=== PATIENT | female | born 1960 | race African-American/Black ===

== ENCOUNTER 2025-01-19 13:40 | Emergency (ER) | payer MEDICAID ==
[~2025-01-19] VITALS: Ht 162.6 cm; Wt 50.3 kg
[2025-01-19 14:34] VITALS: BP 139/85; PULSE 94; RESP 18; O2SAT 98
== END 2025-01-19 16:19 | disposition left against medical advice (07) ==
LOC: ER 13:40
DX: R05.9 Cough, unspecified (principal); Z53.21 Procedure and treatment not carried out due to patient leaving prior to being seen by health care provider

== ENCOUNTER 2025-05-11 09:40 | Emergency (ER) | payer MEDICAID ==
[~2025-05-11] VITALS: Ht 162.6 cm; Wt 48.0 kg
[2025-05-11 10:10] VITALS: BP 132/93; PULSE 80; RESP 20; TEMP 98.2; O2SAT 95
[2025-05-11] MEDS ORDERED: [UNRECOGNIZED DRUG - CODE] OT (10:21)
[2025-05-11] MEDS ORDERED: BENZ100C97 PO (10:21)
[2025-05-11] MEDS ORDERED: METH4PAK PO (10:21)
[2025-05-11] MEDS ORDERED: GUA200LQ PO (10:21)
[2025-05-11] MEDS ORDERED: AUG875T PO (10:21)
--- NOTE | 2025-05-11 10:23 | ED.PDOC ---
SOB-HPI HPI Comments 64-year-old female presents with a chief complaint of SOB, headache, left ear pain, and possible COVID infection. Patient mentions that these symptoms started x 2 days ago. Patient reports that her headache is localized to her frontal head, describes as throbbing. Patient mentions that she was exposed to COVID from her daughter in law. Patient relays that she has been self medicating with Tylenol with temp relief of symptoms. Patient does smoke cigarettes and states that she is not ready to quit. Patient has emphysema from smoking. Started x 2 days ago Also with headache, left ear pain COVID-19 exposure: Yes People at home: YES Denies fevers chills night sweats unintentional weight loss Denies persistent chest pain, shortness of breath, leg swelling Denies history of asthma Denies history of pneumonia Denies recent international travel Chief Complaint: Flu like Time Seen by MD: 10:09 Primary Care Provider: LARIOS Reviewed notes: Nurses Notes, Medications, Allergies Information Source: Patient Mode of Arrival: Ambulatory Severity: Moderate Timing: Days Duration: Since onset Context: Contact Exposure PE Risk Factors: None History of: Other (Emphysema) Prehospital treatment: None Associated Signs and Symptoms: Cough Past Medical History PAST MEDICAL HISTORY: Denies Surgical History: Denies all surgeries CONVERTER SKIMMER History: No Pertinent CONVERTER SKIMMER History Social History Smoker: Cigarettes Alcohol: Denies ETOH Use Drugs: Denies Drug Use Lives In: Home Constitutional: denies: chills, diaphoresis, fatigue, fever, malaise, sweats, weakness, others EENTM: denies: blurred vision, double vision, ear bleeding, ear discharge, ear drainage, ear pain, ear ringing, eye pain, eye redness, hearing loss, mouth pain, mouth swelling, nasal discharge, nose bleeding, nose congestion, nose pain, photophobia, tearing, throat pain, throat swelling, voice changes, others Respiratory: reports: shortness of breath; denies: cough, hemoptysis, orthopnea, SOB at rest, SOB with excertion, stridor, wheezing, others Cardiovascular: denies: chest pain, dizzy spells, diaphoresis, Dyspnea on exertion, edema, irregular heart beat, left arm pain, lightheadedness, palpit ations, PND, syncope, others Gastrointestinal: denies: abdomen distended, abdominal pain, blood streaked b owels, constipated, diarrhea, dysphagia, difficulty swallowing, hematemesis, melena, nausea, poor appetite, poor fluid intake, rectal bleeding, rectal pain, vomiting, others Genitourinary: denies: abnormal vagina bleeding, burning, dyspareunia, dysuria, flank pain, frequency, hematuria, incontinence, pain, , vagina discharge, urgency, others Neurological: reports: headache; denies: dizziness, fainting, left sided numbness, left sided weakness, numbness, paresthesia, pre-existing deficit, right sided numbness, right sided weakness, seizure, speech problems, tingling, tremors, weakness, others Musculoskeletal: denies: back pain, gout, joint pain, joint swelling, muscle pain, muscle stiffness, neck pain, others Integumetry: denies: bruises, change in color, change in hair/nails, dryness, laceration, lesions, lumps, rash, wounds, others Allergic/Immunocompromised: denies: Difficulty Healing, Frequent Infections, Hives, Itching, others Hematologic/Lymphatic: denies: anemia, blood clots, easy bleeding, easy bruising, swollen glands, others Endocrine: denies: excessive hunger, excessive sweating, excessive thirst, excessive urination, flushing, intolerance to cold, intolerance to heat, unexplained weight gain, unexplained weight loss, others Psychiatric: denies: anxiety, bipolar disorder, depression, hopeless, panic disorder, schizophrenia, sleepless, suicidal, others All Other Systems: Reviewed and Negative Physical Exam General Appearance: No Apparent Distress, Normal HEENT: Normal ENT Inspection, Pharynx Normal, TMs Normal Neck: Full Range of Motion, Non-Tender, Normal, Normal Inspection Respiratory: Chest Non-Tender, Lungs Clear, No Accessory Muscle Use, No Respiratory Distress, Normal Breath Sounds, Other (No tripod positioning, patient is able to speak in full complete sentences) Cardiovascular: No Edema, No JVD, No Murmur, No Gallop, Normal Peripheral Pulses, Regular Rate/Rhythm Breast Exam: Deferred Gastrointestinal: No Organomegaly, Non Tender, No Pulsatile Mass, Normal Bowel Sounds, Soft Genitalia: Deferred Pelvic: Deferred Rectal: Deferred Extremities: No calf tenderness, Normal capillary refill, Normal inspection, Normal range of motion, Non-tender, No pedal edema Musculoskeletal : Apperance: Normal Neurologic: Alert, paint line supervisor II-XII nml as Tested, No Motor Deficits, Normal Affect, Normal Mood, No Sensory Deficits Cerebellar Function: Normal Reflexes: Normal Skin: Dry, Normal Color, Warm Lymphatic: No Adenopathy Was a procedure done? Was a procedure done?: No Differential Dx Differential Diagnosis: Asthma, Bronchitis, URI X-Ray, Labs, Meds, VS Vital Signs Date Time Temp Pulse Resp B/P (MAP) Pulse Ox O2 Delivery O2 Flow Rate FiO2 05/11/25 10:10 80 20 95 Room Air 05/11/25 10:10 98.2 80 20 132/93 (106) 95 98.2 05/11/25 09:59 98.2 80 20 132/93 (106) 95 98.2 X-Ray, Labs, Meds, VS Comment 64-year-old female presents with a chief complaint of SOB, headache, left ear pain, and possible COVID infection. Patient arrives alert and oriented, ABC's intact, afebrile, vital signs stable, saturating well in room air The patient is overall well-appearing nontoxic on exam. On physical exam, respirations even and unlabored, clear to auscultation bilaterally. Oxygen stable on room air. Did not have any focal lung findings and therefore chest x-ray was not indicated during this exam Low suspicion of strep pharyngitis given physical exam findings and patient's presenting symptoms No signs of meningismus on exam Overall, the patient is well hydrated and nontoxic. Plan for symptomatic control for fever and pain as needed. The patient was able to tolerate p.o. intake in the ED. at this time, patient is safe for discharge home. The exam f indings and plan discussed. We will discharge home with PCP follow up and strict return precautions. Discussed that cough can linger up to 6 weeks after viral URI Supportive care and return precautions discussed Recommended vitamin C, rest, handwashing, and symptomatic care. Expect 2-week course with possibly of cough lingering up to 6 weeks. Nonpharmacological remedies for fluids has been recommended as well Additional MDM Review of External, Non-ED records: External records reviewed. Discussion with independent historian (EMS, family) history obtained from the patient/parents (if applicable) at bedside Chronic conditions affecting care: None Social determinants of health affecting care: None Consideration of admission (observation or admission): I considered escalation of care to admission for this patient, however given the reassuring workup, the patient is safe for outpatient management. Time of 1ST Reevaluation: 10:39 Reevaluation 1ST: Improved Patient Education/Counseling: Diagnosis, Treatment, Prognosis Family Education/Counseling: No Family Present SEPSIS Sepsis Screen Date sepsis recognized/suspect: May 11, 2025 Time Sepsis recognized/suspect: 944 Recent Procedure: No On Antibiotic Therapy: No Respiratory Rate >20: No Heart Rate >90: No Temp<36 C (96.8 F) or >38.3 C: No SBP <90 or MAP <65 mmHG: No New Acute Mental Status Change: No Is the patient on CPAP, BIPAP,: No Orders/Vitals/Labs Vital Signs Date Time Temp Pulse Resp B/P (MAP) Pulse Ox O2 Delivery O2 Flow Rate FiO2 05/11/25 10:10 80 20 95 Room Air 05/11/25 10:10 98.2 80 20 132/93 (106) 95 98.2 05/11/25 09:59 98.2 80 20 132/93 (106) 95 98.2 Departure 1 Departure Time of Disposition: 10:23 Impression: Primary Impression: Bronchitis Additional Impression: Declined smoking cessation Disposition: HOME / SELF CARE / HOMELESS Condition: Stable e-Prescriptions Guaifenesin (Guaifenesin) 100 Mg/5 Ml Syp 100 MG PO Q6HP PRN for 10 Days, #400 SYP 0 Refills Prov: JR JOHNSON DRIVE THRU ORDER TAKER 05/11/25 Methylprednisolone (Medrol Dosepak) 4 Mg Juan 4 MG PO UD for 7 Days, #21 TAB 0 Refills UAD Prov: JR JOHNSON NP 05/11/25 Benzonatate (Benzonatate) 100 Mg Cap 1 CAP PO TID for 10 Days, #30 CAP 0 Refills Prov: JR JOHNSON DRIVE THRU ORDER TAKER 05/11/25 Carbamide Peroxide (Otic) (Gnp Earwax Removal Kit) 6.5 % Josie 6.5 % OT UD for 1 Day, #1 KIT 0 Refills Prov: JR JOHNSON DRIVE THRU ORDER TAKER 05/11/25 Amoxicillin & Pot Clavulanate (AUGMENTIN TABLET) 875 Mg Tb 875 MG PO BID for 5 Days, #10 TAB 0 Refills Prov: JR JOHNSON NP 6/17/25 Discharged With: Self Critical Care Note Critical Care Time?: No Stability Stability form required: No Heart Score Heart Score: Heart Score Response (Comments) Value History N/A 0 EKG N/A 0 Age N/A 0 Risk Factors N/A 0 Troponin N/A 0 Total 0 I personally scribed for JR JOHNSON NP ([email or web address]) on 05/11/25 at 10:22. Electronically submitted by Guillaume Gilliam ([email or web address]). I personally scribed for JR JOHNSON NP ([email or web address]) on 05/11/25 at 10:25. Electronically submitted by Guillaume Gilliam ([email or web address]). JR JOHNSON NP May 11, 2025 10:22
== END 2025-05-11 10:21 | disposition home or self-care (01) ==
LOC: ER 09:40
DX: J40 Bronchitis, not specified as acute or chronic (principal); F17.210 Nicotine dependence, cigarettes, uncomplicated; H92.02 Otalgia, left ear

== ENCOUNTER 2025-08-19 11:52 | Emergency (ER) | payer MEDICAID ==
[~2025-08-19] VITALS: Ht 157.5 cm; Wt 50.0 kg
[~2025-08-19 11:52] MED LIST: AUG875T PO; BENZ100C97 PO; GUA200LQ PO; METH4PAK PO; [UNRECOGNIZED DRUG - CODE] OT
[2025-08-19 12:00] VITALS: PULSE 71; RESP 16; O2SAT 93
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
[2025-08-19 13:10] VITALS: RESP 19; TEMP 98.6; O2SAT 94
--- NOTE | 2025-08-19 13:39 | DVH ---
CLINICAL INDICATION: fall TECHNIQUE: XY L HIP COMPLETE XRAY Comparison: None FINDINGS/IMPRESSION: : There is no evidence of acute fracture or dislocation. Soft tissues are unremarkable. Moderate degenerative changes of bilateral hips.
--- NOTE | 2025-08-19 13:39 | DVH ---
INDICATION: fall TECHNIQUE: 4 views of the lumbar spine were obtained. COMPARISON: None FINDINGS: There are no acute fractures or subluxations. IMPRESSION: No acute fracture or subluxation.
[2025-08-19] MEDS: KETOROLAC TROMETH 30 MG/ML 1ML VIAL IM ONE (13:46)
[2025-08-19] MEDS: HALOPERIDOL LACTATE 5 MG/ML INJ VIAL IM ONE (13:48)
[2025-08-19 18:00] VITALS: BP 113/76; PULSE 73; RESP 14; O2SAT 93
== END 2025-08-19 19:30 | disposition home or self-care (01) ==
LOC: EDBD 11:52 → ER 11:52
DX: S76.012A Strain of muscle, fascia and tendon of left hip, initial encounter (principal); F17.210 Nicotine dependence, cigarettes, uncomplicated; Z79.899 Other long term (current) drug therapy; W19.XXXA Unspecified fall, initial encounter; Y93.89 Activity, other specified; Y92.89 Other specified places as the place of occurrence of the external cause; Y99.8 Other external cause status
CPT/HCPCS: 72100; 73502; 96372; 99285; J1630; J1885

== ENCOUNTER 2025-11-05 04:22 | Emergency (ER) | payer MEDICAID ==
[~2025-11-05] VITALS: Ht 162.6 cm; Wt 49.0 kg
--- NOTE | 2025-11-05 04:36 | ED.PDOC ---
History of Present Illness HPI Comments 65-year-old female who came to ER via EMS for difficulty swallowing. Patient has history of COPD. States for the past 3 days, she has been having difficulty swallowing. Feels like there is something stuck in her throat. Noted to also have shortness of breath/difficulty breathing. Patient states she has di fficulty swallowing but claims she has no problem eating her food. No drooling noted. Chief Complaint: Difficulty swallowing Time Seen by MD: 04:36 Primary Care Provider: LARIOS Reviewed Notes: Nurses Notes Allergies: Coded Allergies: NO KNOWN ALLERGIES (Unverified , 01/19/25) Home Meds Active Scripts Guaifenesin (Guaifenesin) 100 Mg/5 Ml Syp, 100 MG PO Q6HP PRN for 10 Days, #400 SYP 0 Refills Prov:JR JOHNSON NP 05/11/25 Methylprednisolone (Medrol Dosepak) 4 Mg Juan, 4 MG PO UD for 7 Days, #21 TAB 0 Refills UAD Prov:JR JOHNSON NP 05/11/25 Benzonatate (Benzonatate) 100 Mg Cap, 1 CAP PO TID for 10 Days, #30 CAP 0 Refills Prov:JR JOHNSON NP 05/11/25 Carbamide Peroxide (Otic) (Gnp Earwax Removal Kit) 6.5 % Josie, 6.5 % OT UD for 1 Day, #1 KIT 0 Refills Prov:JR JOHNSON NP 05/11/25 Amoxicillin & Pot Clavulanate (AUGMENTIN TABLET) 875 Mg Tb, 875 MG PO BID for 5 Days, #10 TAB 0 Refills Prov:JR JOHNSON NP 05/11/25 Information Source: Patient, Emergency Med Personnel Mode of Arrival: EMS Past Medical History PAST MEDICAL HISTORY: COPD Surgical History: Denies all surgeries 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 History Social History Smoker: Cigarettes Alcohol: Denies ETOH Use Drugs: Denies Drug Use Lives In: Home Constitutional: denies: chills, diaphoresis, fatigue, fever, malaise, sweats, weakness, others EENTM: denies: blurred vision, double vision, ear bleeding, ear discharge, ear drainage, ear pain, ear ringing, eye pain, eye redness, hearing loss, mouth pain, mouth swelling, nasal discharge, nose bleeding, nose congestion, nose pain, photophobia, tearing, throat pain, throat swelling, voice changes, others Respiratory: reports: shortness of breath; denies: cough, hemoptysis, orthopnea, SOB at rest, SOB with excertion, stridor, wheezing, others Cardiovascular: denies: chest pain, dizzy spells, diaphoresis, Dyspnea on exertion, edema, irregular heart beat, left arm pain, lightheadedness, palpitations, PND, syncope, others Gastrointestinal: reports: difficulty swallowing; denies: abdomen distended, abdominal pain, blood streaked bowels, constipated, diarrhea, dysphagia, hematemesis, melena, nausea, poor appetite, poor fluid intake, rectal bleeding, rectal pain, vomiting, others Genitourinary: denies: abnormal vagina bleeding, burning, dyspareunia, dysuria, flank pain, frequency, hematuria, incontinence, pain, , vagina discharge, urgency, others Neurological: denies: dizziness, fainting, headache, left sided numbness, left sided weakness, numbness, paresthesia, pre-existing deficit, right sided numb ness, right sided weakness, seizure, speech problems, tingling, tremors, weakness, others Musculoskeletal: denies: back pain, gout, joint pain, joint swelling, muscle pain, muscle stiffness, neck pain, others Integumetry: denies: bruises, change in color, change in hair/nails, dryness, laceration, lesions, lumps, rash, wounds, others Allergic/Immunocompromised: denies: Difficulty Healing, Frequent Infections, Hives, Itching, others Hematologic/Lymphatic: denies: anemia, blood clots, easy bleeding, easy bruising, swollen glands, others Endocrine: denies: excessive hunger, excessive sweating, excessive thirst, excessive urination, flushing, intolerance to cold, intolerance to heat, unexplained weight gain, unexplained weight loss, others Psychiatric: denies: anxiety, bipolar disorder, depression, hopeless, panic disorder, schizophrenia, sleepless, suicidal, others Physical Exam General Appearance: No Apparent Distress, Normal HEENT: Normal ENT Inspection, Pharynx Normal, TMs Normal Neck: Full Range of Motion, Non-Tender, Normal, Normal Inspection Respiratory: Chest Non-Tender, Lungs Clear, No Accessory Muscle Use, No Respiratory Distress, Normal Breath Sounds Cardiovascular: No Edema, No JVD, No Murmur, No Gallop, Normal Peripheral Pulses, Regular Rate/Rhythm Breast Exam: Deferred Gastrointestinal: No Organomegaly, Non Tender, No Pulsatile Mass, Normal Bowel Sounds, Soft Genitalia: Deferred Pelvic: Deferred Rectal: Deferred Extremities: No calf tenderness, Normal capillary refill, Normal inspection, Normal range of motion, Non-tender, No pedal edema Musculoskeletal : Apperance: Normal Neurologic: Alert, merchandising professor II-XII nml as Tested, No Motor Deficits, Normal Affect, Normal Mood, No Sensory Deficits Cerebellar Function: Normal Reflexes: Normal Skin: Dry, Normal Color, Warm Lymphatic: No Adenopathy Was a procedure done? Was a procedure done?: No Differential Dx Considerations may include: Dysphagia, odynophagia, mass, COPD X-Ray, Labs, Meds, VS Vital Signs Date Time Temp Pulse Resp B/P (MAP) Pulse Ox O2 Delivery O2 Flow Rate FiO2 11/05/25 04:50 64 16 96 Room Air* 0 21 11/05/25 04:49 98.0 64 16 114/45 (68) 96 98.0 11/05/25 04:33 97.8 62 16 100/70 96 97.8 Current Medications Medications (Trade) Dose Ordered Sig/Verna Route Start Time Stop Time Status Last Admin Sodium Chloride 1,000 ml @ 1,000 mls/hr Q1H ONCE IV 11/05/25 04:45 11/05/25 05:44 11/05/25 05:03 Time of 1ST Reevaluation: 04:32 Reevaluation 1ST: Unchanged Patient Education/Counseling: Diagnosis, Treatment Family Education/Counseling: No Family Present SEPSIS Sepsis Screen Physician Orders Complete Blood Count (11/05/25 04:31) Comprehensive Metabolic Panel (11/05/25 04:31) PTPTT (11/05/25 04:31) Neck With Contrast Soft (11/05/25 04:31) Sodium Chloride 0.9% (11/05/25 04:45) Vital Signs Date Time Temp Pulse Resp B/P (MAP) Pulse Ox O2 Delivery O2 Flow Rate FiO2 11/05/25 04:50 64 16 96 Room Air* 0 21 11/05/25 04:49 98.0 64 16 114/45 (68) 96 98.0 11/05/25 04:33 97.8 62 16 100/70 96 97.8 Medications Medications Dose Ordered Sig/Verna Route Start Time Stop Time Status Last Admin Dose Admin Sodium Chloride 1,000 ml @ 1,000 mls/hr Q1H ONCE IV 11/05/25 04:45 11/05/25 05:44 11/05/25 05:03 Departure 1 Departure Time of Disposition: 07:00 Impression: Primary Impression: Dysphagia Additional Impressions: Dyspnea Airway clearance impairment Disposition: ADMITTED INPATIENT Admit to: Med Surg Condition: Guarded Comments 65-year-old female with difficulty swallowing saliva for the last few days. She also feels short of breath like her airway is getting cut off. I ordered a CT soft tissue neck and lab work. Patient will need admission for supportive care and further workup and possible specialty consultation. Critical Care Note Critical Care Time?: Yes (35 min-critical care time only) Critical care comment: Total critical care time: Approximately 36 minutes Due to a high probability of clinically significant, life threatening deterioration, the patient required my highest level of preparedness to interv marcus emergently and I personally spent this critical care time directly and personally managing the patient. This critical care time included obtaining a history; examining the patient; pulse oximetry; ordering and review of studies; arranging urgent treatment with development of a management plan; evaluation of patient's response to treatment; frequent reassessment; and, discussions with other providers. This critical care time was performed to assess and manage the high probability of imminent, life-threatening deterioration that could result in multi-organ failure. It was exclusive of separately billable procedures and treating other patients. Stability Stability form required: No Heart Score Heart Score: Heart Score Response (Comments) Value History N/A 0 EKG N/A 0 Age N/A 0 Risk Factors N/A 0 Troponin N/A 0 Total 0 I personally scribed for MAGGY PANTOJA MD ([email or web address]) on 11/05/25 at 04:36. Electronically submitted by Edwar Gillespie ([email or web address]). MAGGY PANTOJA MD Nov 05, 2025 04:36
[2025-11-05 04:49] VITALS: BP 114/45; TEMP 98
[2025-11-05 04:50] VITALS: PULSE 64; RESP 16; O2SAT 96
[2025-11-05] MEDS: SODIUM CHLORIDE 0.9% 1,000 ML IV ONE (05:03)
== END 2025-11-05 05:57 | disposition left against medical advice (07) ==
LOC: ER 04:22 → EDBD 04:22 → ER 05:57
DX: R13.10 Dysphagia, unspecified (principal); R06.00 Dyspnea, unspecified; J98.8 Other specified respiratory disorders; J44.9 Chronic obstructive pulmonary disease, unspecified; F17.210 Nicotine dependence, cigarettes, uncomplicated; Z79.899 Other long term (current) drug therapy
CPT/HCPCS: 82947; 96360; 99283; J7030